=== PATIENT | female | born 1950 | race Caucasian/White ===

== ENCOUNTER 2021-04-21 06:00 | Outpatient (RCR) | payer MEDICARE, MEDICAID, SELFPAY | END 2021-05-18 23:59 | disposition home or self-care (01) | LOC: APT 06:00 | PROVIDERS: PCP Specialist; Referring Provider Orthopaedic Surgery; Visit Provider Orthopaedic Surgery | DX: M17.12 Unilateral primary osteoarthritis, left knee (principal) | CPT/HCPCS: 97110; 97162 ==

== ENCOUNTER 2021-05-19 06:00 | Outpatient (RCR) | payer MEDICARE, MEDICAID, SELFPAY | END 2021-06-17 23:59 | disposition home or self-care (01) | LOC: APT 06:00 | PROVIDERS: PCP Specialist; Referring Provider Orthopaedic Surgery; Visit Provider Orthopaedic Surgery | DX: M17.12 Unilateral primary osteoarthritis, left knee (principal) | CPT/HCPCS: 97110 ==

== ENCOUNTER 2022-04-01 09:54 | Outpatient (CLI) | payer MEDICARE, MEDICAID, SELFPAY ==
--- NOTE | 2022-04-01 10:03 | MM_ITS ---
WS: [id number] SCREENING DIGITAL BREAST TOMOSYNTHESIS MAMMOGRAM WITH CAD HISTORY: SCREENING COMPARISON: None available. Bilateral CC and MLO with tomosynthesis and synthetic mammography submitted. Computer aided detection analyzed. Breast composition: There are scattered areas of fibroglandular density. Coarse cluster of calcificat ions upper outer quadrant of the RIGHT breast appears benign. There is an additional small cluster gr oup of calcifications more posterior in the upper outer quadrant of the RIGHT breast seen only on the MLO projection. Further evaluation is necessary. There is an asymmetry with central calcifications n oted on the LEFT MLO projection in the superior breast. Further evaluation necessary. Numerous small well-circumscribed nodules in the lateral RIGHT breast from 9-11 o'clock. MM/[place] [id number] IMPRESSION: BI-RADS: 0-Incomplete: Need additional imaging evaluation FOLLOW UP: Need Additional Imaging 1. There are no prior examinations for comparison available. Findings within t he breasts may be stable but without prior studies for comparison additional wo rkup is necessary. RIGHT BREAST: Magnification views of suspicious calcification exaggerated later al CC and MLO. True ML. LEFT breast: Spot compression views (MLO). True ML. Ultrasound to follow if abn ormality persists. Ultrasound upper outer quadrant RIGHT breast from 9-11 o'clock to evaluate leo ral groups of well-circumscribed nodule which may be cysts.
== END 2022-04-01 09:55 | disposition home or self-care (01) ==
LOC: RAD 09:54
PROVIDERS: PCP Nurse Practitioner Family; Visit Provider Nurse Practitioner Family
DX: Z12.31 Encounter for screening mammogram for malignant neoplasm of breast (principal)
CPT/HCPCS: 77063; 77067

== ENCOUNTER 2022-06-08 14:06 | Outpatient (CLI) | payer MEDICARE, MEDICAID, SELFPAY ==
--- NOTE | 2022-06-08 | US_ITS ---
ADDITIONAL VIEWS BILATERAL MAMMOGRAM AND BILATERAL BREAST ULTRASOUND, WITH DIGITAL BREAST tomosynthesis. ADDITIONAL VIEWS BILATERAL MAMMOGRAM WITH DIGITAL BREAST TOMOSYNTHESIS AND SM. HISTORY: Abnormal mammogram. COMPARISON: 04/01/2022 Right breast: Coarse calcifications upper outer quadrant of the RIGHT breast are very likely due to fibroadenomas with involution. There are several well- circumscribed nodules in the upper outer quadrant which are probably lymph nodes. Ultrasound will be performed. Left breast: There is a very subtle asymmetry in the superior LEFT breast at a middle depth. Nearly completely resolves with additional imaging. This is probably near 12:00 but not as well seen on the CC projection. Ultrasound to follow. BREAST ULTRASOUND RIGHT: Benign-appearing lymph nodes correspond to the mammographic abnormality in the upper-outer quadrant. LEFT breast: No abnormality noted in the superior breast. IMPRESSION: BI-RADS: 2-Benign FOLLOW UP: 1 Year Follow-up A[facility]
--- NOTE | 2022-06-08 14:19 | MM_ITS ---
WS: [id number] ADDITIONAL VIEWS BILATERAL MAMMOGRAM AND BILATERAL BREAST ULTRASOUND, WITH DIGITAL BREAST tomosynthes is. ADDITIONAL VIEWS BILATERAL MAMMOGRAM WITH DIGITAL BREAST TOMOSYNTHESIS AND SM. HISTORY: Abnormal mammogram. COMPARISON: 04/01/2022 Right breast: Coarse calcifications upper outer quadrant of the RIGHT breast are very likely due to f ibroadenomas with involution. There are several well-circumscribed nodules in the upper outer quadran t which are probably lymph nodes. Ultrasound will be performed. Left breast: There is a very subtle asymmetry in the superior LEFT breast at a middle depth. Nearly c ompletely resolves with additional imaging. This is probably near 12:00 but not as well seen on the C C projection. Ultrasound to follow. BREAST ULTRASOUND RIGHT: Benign-appearing lymph nodes correspond to the mammographic abnormality in the upper-outer iwona drant. LEFT breast: No abnormality noted in the superior breast. MM/[place] [id number] IMPRESSION: BI-RADS: 2-Benign FOLLOW UP: 1 Year Follow-up
== END 2022-06-08 14:07 | disposition home or self-care (01) ==
PROVIDERS: PCP Nurse Practitioner Family; Visit Provider Nurse Practitioner Family
DX: R92.8 Other abnormal and inconclusive findings on diagnostic imaging of breast (principal)
CPT/HCPCS: 76642; 77062

== ENCOUNTER → 2022-11-08 08:41 | Outpatient (BNVA) | payer MEDICARE, MEDICAID, SELFPAY | PROVIDERS: PCP Nurse Practitioner Family; Referring Provider Nurse Practitioner Family; Visit Provider Specialist | DX: G30.0 Alzheimer's disease with early onset (principal); F02.B0 Dementia in other diseases classified elsewhere, moderate, without behavioral disturbance, psychotic disturbance, mood disturbance, and anxiety | CPT/HCPCS: 96116; 99205 ==

== ENCOUNTER → 2023-02-02 13:46 | Outpatient (BNVA) | payer MEDICARE, MEDICAID, SELFPAY | PROVIDERS: PCP Nurse Practitioner Family; Visit Provider Specialist | DX: G30.9 Alzheimer's disease, unspecified (principal); F02.A0 Dementia in other diseases classified elsewhere, mild, without behavioral disturbance, psychotic disturbance, mood disturbance, and anxiety | CPT/HCPCS: 99213 ==

== ENCOUNTER 2023-07-06 18:13 | Emergency (ER) | payer MEDICARE, MEDICAID, SELFPAY ==
[2023-07-06 18:32] VITALS: BP 143/85; PULSE 75; RESP 16; TEMP 36.6; O2SAT 97; BMI 22.6
--- NOTE | 2023-07-06 19:13 | CTR_ITS ---
PROCEDURE INFORMATION: Exam: CT Head Without Contrast Exam date and time: 07/06/2023 8:15 PM Age: 72 years old Clinical indication: Injury or trauma; Fall; Blunt trauma (contusions or hematomas); Patient HX: Patient fell bacwards striking head on fireplace at home. Lac near vertex of head on left side. History of dementia TECHNIQUE: Imaging protocol: Computed tomography of the head without contrast. Radiation optimization: All CT scans at this facility use at least one of these dose optimization techniques: automated exposure control; mA and/or kV adjustment per patient size (includes targeted exams where dose is matched to clinical indication); or iterative reconstruction. REPORTING DATA: Count of CT and Cardiac NM exams in prior 12 months: This patient has received 0 known CTs and 0 known cardiac nuclear medicine studies in the 12 months prior to the current study. COMPARISON: No relevant prior studies available. RADIATION DOSE METRICS: Total DLP (mGy-cm): 979.21 FINDINGS: Brain: There is age-appropriate cerebral atrophy. No hemorrhage. There is periventricular white matter disease. No mass effect. The basal cisterns are patent. The laceration is evidence in the soft tissues of the high left parietal region closer to the apex. Cerebral ventricles: Ventriculomegaly secondary to age-appropriate cerebral atrophy Paranasal sinuses: Visualized sinuses are unremarkable. No fluid levels. Mastoid air cells: Visualized mastoid air cells are well aerated. Bones/joints: Unremarkable. No acute fracture. Soft tissues: Unremarkable. CT/CT head wo con* [id number] IMPRESSION: 1. No acute intracranial abnormality. 2. Laceration noted in the left parietal region close to the vertex.
--- NOTE | 2023-07-06 19:13 | W.ED.FALL ---
HPI - Fall General: Chief Complaint: Fall Stated Complaint: Fell hit Head Time Seen by Provider: 07/06/23 18:58 Source: patient Mode of arrival: ambulatory Limitations: no limitations History of Present Illness: 72-year-old female states just prior to arrival she had fell off a chair she was dusting shells and hit her head on the fireplace. She does have a laceration left parietal region she has a headache she denies any loss of consciousness states headaches mild she denies any neck pain denies any other injuries was ambulatory after the event. Has had no vomiting Associated symptoms-after fall: Reports headache(s); Denies abdominal pain, chest pain or neck pain Review of Systems Const: Denies: fever(s), chills, body aches or change in appetite Eyes: Denies: blurry vision or eye discomfort ENMT: Denies: throat pain or dental pain Card: Denies: chest pain Resp: Denies: dyspnea GI: Denies: abdominal pain, nausea, vomiting or diarrhea : Denies: dysuria Musc: Denies: neck pain or back pain Skin/Breast: Denies: rash Neuro: Reports: headache(s) PFSH ED PFSH: Social History Smoking and tobacco/nicotine status: never used tobacco/nicotine Alcohol intake: never Substance/Drug Use: never Physical Exam Const: COMMON NORMALS: no acute distress, patient oriented x3 and healthy appearing HENMT: COMMON NORMALS: normocephalic HEAD & SCALP: normocephalic OTHER: 3cm laceration to right parietal scalp Neck/C-Spine: COMMON NORMALS: full ROM and supple Chest: COMMONS NORMALS: normal inspection of the chest and normal palpation of entire chest wall Resp: COMMON NORMALS: normal respiratory effort, No retractions, No use of accessory muscles and clear to auscultation bilaterally AUSCULTATION: clear to auscultation bilaterally Cardio: COMMON NORMALS: regular rate, regular rhythm and No murmurs present (Cardio) RATE: regular rate RHYTHM: regular rhythm GI: COMMON NORMALS: Normal to inspection, nondistended, normoactive bowel sounds present, Soft to palpation, non-tender and no masses PALPATION: Yes Soft to palpation Extremity: COMMON NORMALS: normal to inspection and full ROM Neuro: COMMON NORMALS: patient oriented x3, moves all extremities and no focal motor deficits Psych: COMMON NORMALS: mental status grossly normal, Normal thought process present and cooperative THOUGHT PROCESS: Normal thought process present Skin: COMMON NORMALS: no rashes or lesions noted and no wounds GENERAL SKIN EXAM: no rashes or lesions noted Procedures Laceration Laceration 1: Site: scalp Side (If applicable): left Size (cm): 3 Description: linear Depth: simple, single layer Local Anesthetic: lidocaine 1% Amount of anesthesia used (mL): 8 Pre-repair: wound explored and irrigated extensively Skin layer closed with: other (melissa) Number of sutures: 4 Course Vital Signs: Vital signs: Vital Signs Temperature 97.9 F 07/06/23 18:32 Pulse Rate 74 07/06/23 20:36 Respiratory Rate 16 07/06/23 20:36 Blood Pressure 162/94 07/06/23 20:36 Pulse Oximetry 93 07/06/23 20:36 Oxygen Delivery Me thod Room Air 07/06/23 20:36 MDM - Fall Medical Decision Making Patient presents with a head laceration from a fall her head CT here is normal she is stable for discharge laceration was stapled she does have stable out in roughly a week. Medical Records I reviewed the patient's medical records. Lab Data Radiology Impressions Head CT 07/06/23 19:13 IMPRESSION: 1. No acute intracranial abnormality. 2. Laceration noted in the left parietal region close to the vertex. No radiology studies performed this visit Discharge Plan Discharge Patient Disposition: Home Clinical Impression: Laceration of head Condition: Stable Prescriptions: No Action buspirone 15 mg tablet 15 mg PO BID metformin 1,000 mg tablet 1,000 mg PO DAILY hydrochlorothiazide 12.5 mg tablet 12.5 mg PO DAILY lisinopril 10 mg tablet 10 mg PO DAILY galantamine 8 mg tablet 8 mg PO BID 90 Days Qty: 180 3RF Rx Instructions: administer with AM and PM meals Discharge Orders: Discharge ED (Routine); Ordered 07/06/23 Ordered By: Marlena Stokes Referrals: Mounika Mead FNP [Primary Care Provider] - 4-7 days Discharge Diet: Advance as tolerated Discharge Activity: Resume usual activity Patient Instructions: Head Laceration (ED) Activity Restrictions/Additional Instructions: suture removal in 7 days Coding Level of Care Code ED Reservations Sales Agent for Amadog Jos
[2023-07-06] MEDS: lidocaine 1% INJ 10 mL (per mL) INJECTION (19:30)
[2023-07-06 20:36] VITALS: BP 162/94; PULSE 74; RESP 16; O2SAT 93
[2023-07-06 21:10] VITALS: BP 173/102; RESP 16
== END 2023-07-06 21:14 | disposition home or self-care (01) ==
PROVIDERS: Emergency Provider Emergency Medicine; PCP Nurse Practitioner Family
DX: S01.01XA Laceration without foreign body of scalp, initial encounter (principal); W07.XXXA Fall from chair, initial encounter; Z79.84 Long term (current) use of oral hypoglycemic drugs
CPT/HCPCS: 12002; 70450; 99284

== ENCOUNTER → 2023-07-25 14:02 | Outpatient (BNVA) | payer MEDICAID, SELFPAY | PROVIDERS: PCP Nurse Practitioner Family; Visit Provider Specialist | DX: G30.9 Alzheimer's disease, unspecified (principal); F02.80 Dementia in other diseases classified elsewhere, unspecified severity, without behavioral disturbance, psychotic disturbance, mood disturbance, and anxiety; R63.4 Abnormal weight loss; Z68.21 Body mass index [BMI] 21.0-21.9, adult | CPT/HCPCS: 99213 ==

== ENCOUNTER → 2023-12-14 14:52 | Outpatient (BNVA) | payer MEDICARE, MEDICAID, SELFPAY | PROVIDERS: PCP Nurse Practitioner Family; Visit Provider Nurse Practitioner Family | DX: Z11.52 Encounter for screening for COVID-19 (principal) | CPT/HCPCS: 87426 ==

== ENCOUNTER 2024-06-30 16:48 | Emergency (ER) | payer MEDICARE, MEDICAID, SELFPAY ==
[2024-06-30 16:53] VITALS: BP 124/82; PULSE 93; RESP 16; TEMP 36.8; O2SAT 94
--- NOTE | 2024-06-30 17:19 | USR_ITS ---
PROCEDURE INFORMATION: Exam: US Duplex Left Lower Extremity Veins, Limited Exam date and time: 06/30/2024 6:02 PM Age: 73 years old Clinical indication: Edema, localized; Lower extremity, left TECHNIQUE: Imaging protocol: Real-time duplex ultrasound of the left extremity with 2-D estrada scale, color Doppler flow and spectral waveform analysis including responses to compression and other maneuvers (when performed) with image documentation. Limited exam focused on the left lower extremity veins. COMPARISON: CR (LOW EXM, ) 06/30/2024 5:28 PM FINDINGS: Left deep veins: Occlusive DVT within the common femoral through the superficial femoral, popliteal, and into the calf veins. There is also a DVT within the deep femoral vein. Superficial veins: Occlusive thrombus in the great saphenous vein from the level of the knee above. Soft tissues: Unremarkable. US/[id number] IMPRESSION: Occlusive DVT extending from the calf veins through the common femoral vein as well as the deep femoral vein and great saphenous vein.
--- NOTE | 2024-06-30 17:19 | XRR_ITS ---
PROCEDURE INFORMATION: Exam: XR Left Femur Exam date and time: 06/30/2024 5:28 PM Age: 73 years old Clinical indication: Pain; Swelling, leg or foot; Thigh; Patient HX: History--arrives with sister from [facility]- C/O left knee swelling that started today around lunch time. detention called her doctor and was sent to er. Left lower leg swollen from above the knee down. PT denies injury, but has dementia. TECHNIQUE: Imaging protocol: Radiologic exam of the left femur. Views: 2 views. COMPARISON: CR XR knee LT 3V* [id number] 04/06/2021 6:07 PM FINDINGS: Bones/joints: No acute fracture. 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 Soft tissues: Unremarkable. XR/XR femur LT min 2V* [id number] IMPRESSION: No acute findings.
--- NOTE | 2024-06-30 17:19 | XRR_ITS ---
PROCEDURE INFORMATION: Exam: XR Left Tibia and Fibula Exam date and time: 06/30/2024 5:28 PM Age: 73 years old Clinical indication: Pain; Swelling, leg or foot; Patient HX: History--arrives with sister from [facility]- C/O left knee swelling that started today around lunch time. prison called her doctor and was sent to er. Left lower leg swollen from above the knee down. PT denies injury, but has dementia. TECHNIQUE: Imaging protocol: Radiologic exam of the left tibia and fibula. Views: 2 views. COMPARISON: CR XR knee LT 3V* [id number] 04/06/2021 6:07 PM FINDINGS: Bones/joints: Normal. Soft tissues: Normal. XR/XR tibia fibula LT 2V [id number] IMPRESSION: No acute findings.
[2024-06-30 17:50] VITALS: BP 135/78; PULSE 93; O2SAT 95
[2024-06-30] MEDS: rivaroxaban 10 mg Tablet 15 MG PO (18:43)
[2024-06-30 18:46] VITALS: BP 133/76; PULSE 96; O2SAT 94
--- NOTE | 2024-06-30 19:11 | ED_ITS ---
HPI - Extremity Problem General: Chief complaint: Extremity Injury, Lower Stated complaint: left knee swelling Time Seen by Provider: 06/30/24 17:06 History of Present Illness: This patient is a 73-year-old senior living resident who was sent to the emergency department for evaluation of left lower extremity swelling. This came on today. No known injury. Patient denies having any chest pain or shortness of breath. No fever. Patient does have a history of dementia. She is here with her family member. Related Data Home Medications Medication Instructions Recorded Confirmed buspirone 15 mg tablet 15 mg PO BID 04/16/21 12/14/23 hydrochlorothiazide 12.5 mg tablet 12.5 mg PO DAILY 04/16/21 12/14/23 lisinopril 10 mg tablet 10 mg PO DAILY 04/16/21 12/14/23 metformin 1,000 mg tablet 1,000 mg PO DAILY 04/16/21 12/14/23 atorvastatin 10 mg tablet ea PO 07/25/23 12/14/23 loratadine 10 mg tablet ea PO 07/25/23 12/14/23 Previous Rx's Medication Instructions Recorded galantamine 4 mg tablet 4 mg PO BID 90 days #180 tabs 07/25/23 rivaroxaban 15 mg tablet (Xarelto) 15 mg PO BID #42 tabs 06/30/24 Allergies Allergy/AdvReac Type Severity Reaction Status Date / Time codeine AdvReac Intermediate ADR-Vomitin Verified 06/30/24 17:03 g Review of Systems General: Reports: 10 or more systems reviewed and unremarkable except in HPI and below Card: Reports: swelling of feet/ankles (left) [facility] ED [facility]: Social History Smoking and tobacco/nicotine status: never used tobacco/nicotine Alcohol intake: never Substance/Drug Use: never Physical Exam Const: COMMON NORMALS: no acute distress, patient oriented x3 and no limitations GENERAL APPEARANCE: cooperative and comfortable HENMT: COMMON NORMALS: normocephalic, atraumatic, Normal nasal mucous membranes and turbinates present, moist oral mucous membranes and oropharynx normal HEAD & SCALP: normal to inspection, normocephalic and atraumatic FACE & SINUS: normal facial exam NOSE: Normal nasal mucous membranes and turbinates present Eye: COMMON NORMALS: Equal, round and reactive pupils present, EOMs intact bilaterally and conjunctivae normal GENERAL EYE: appearance normal, both eyes and all related structures CONJUNCTIVA: Yes conjunctivae normal PUPIL: Yes Equal, round and reactive pupils present Neck/C-Spine: COMMON NORMALS: supple and no JVD Chest: COMMONS NORMALS: normal inspection of the chest Resp: COMMON NORMALS: normal respiratory effort and clear to auscultation bilaterally AUSCULTATION: clear to auscultation bilaterally Cardio: COMMON NORMALS: no JVD, regular rate, regular rhythm, No gallops present (Cardio), No murmurs present (Cardio) and No rub (Cardio) RATE: regular rate RHYTHM: regular rhythm GI: COMMON NORMALS: Normal to inspection, nondistended, normoactive bowel sounds present, Soft to palpation and non-tender AUSCULTATION: Yes normoactive bowel sounds PALPATION: Yes Soft to palpation : COMMON NORMALS: Yes no CVA tenderness BLADDER/KIDNEY EXAM: Yes no CVA tenderness Back/Pelvis: COMMON NORMALS: no CVA tenderness and thoracic and lumbar spine normal to inspection Extremity: GENERAL: Yes calf tenderness OTHER: 3+ pitting edema up to the left thigh. Neuro: COMMON NORMALS: patient oriented x3 and CN's II-XII intact bilaterally Psych: COMMON NORMALS: mental status grossly normal, Normal thought process present and cooperative THOUGHT PROCESS: Normal thought process present Skin: COMMON NORMALS: no rashes or lesions noted, turgor normal and no jaundice GENERAL SKIN EXAM: no rashes or lesions noted and turgor normal Course Vital Signs: Vital signs: Vital Signs Temperature 98.2 F 06/30/24 16:53 Pulse Rate 96 06/30/24 18:46 Respiratory Rate 16 06/30/24 16:53 Blood Pressure 133/76 06/30/24 18:46 Pulse Oximetry 94 06/30/24 18:46 Oxygen Delivery Me thod Room Air 06/30/24 16:53 MDM - Extremity (Nontraumatic) Medical Decision Making X-rays of the left tibia and fibula did not reveal any fractures. X-rays of the left femur did not reveal any fractures. Venous duplex scan reveals blood clot into the femoral vein. Patient was placed on Xarelto and given her first dose in the emergency department. She was discharged back to the senior living in stable condition. Follow-up with primary care physician. All radiology interpretation(s) finalized by discharge Discharge Plan Discharge Patient Disposition: Home Clinical Impression: DVT (deep venous thrombosis) Qualifiers: DVT location: lower extremity Affected thrombotic vein of extremity: femoral Chronicity: acute Laterality: left Qualified Code(s): I82.412 - Acute embolism and thrombosis of left femoral vein Condition: Stable Prescriptions: New Xarelto 15 mg tablet 15 mg PO BID Qty: 42 0RF Rx Instructions: must administer with a meal/food for 21 days No Action buspirone 15 mg tablet 15 mg PO BID metformin 1,000 mg tablet 1,000 mg PO DAILY hydrochlorothiazide 12.5 mg tablet 12.5 mg PO DAILY lisinopril 10 mg tablet 10 mg PO DAILY loratadine 10 mg tablet PO atorvastatin 10 mg tablet PO galantamine 4 mg tablet 4 mg PO BID 90 Days Qty: 180 2RF Rx Instructions: administer with AM and PM meals Discharge Orders: Discharge ED (Routine); Ordered 06/30/24 Ordered By: Anderson Shanks Referrals: Mounika Mead FNP [Primary Care Provider] - Activity Restrictions/Additional Instructions: After 21 days you will need another prescription for the Xarelto at 20 mg/day for the next several months. Be sure to have your physician write for that. Coding Level of Care Code ED Decorative Greens Cutter for Paulino Arguello
== END 2024-06-30 18:47 | disposition home or self-care (01) ==
PROVIDERS: Emergency Provider Emergency Medicine; PCP Nurse Practitioner Family
DX: I82.412 Acute embolism and thrombosis of left femoral vein (principal); Z79.84 Long term (current) use of oral hypoglycemic drugs
CPT/HCPCS: 73552; 73590; 93971; 99284

== ENCOUNTER → 2024-07-23 09:36 | Outpatient (BNVA) | payer MEDICARE, MEDICAID, SELFPAY | PROVIDERS: PCP Nurse Practitioner Family; Visit Provider Specialist | DX: R41.3 Other amnesia (principal); G30.9 Alzheimer's disease, unspecified; F02.80 Dementia in other diseases classified elsewhere, unspecified severity, without behavioral disturbance, psychotic disturbance, mood disturbance, and anxiety | CPT/HCPCS: 99213 ==